=== PATIENT | male | born 1945 | race American Indian/Alaskan Native ===

== ENCOUNTER 2018-06-26 14:09 | Emergency (ER) | payer BC ==
[2018-06-26 14:16] VITALS: BMI 26.7
[2018-06-26 14:19] VITALS: TEMP 98.5
[2018-06-26] MEDS ORDERED: Fluorescein 1 mg Ophthalmic Strip ONE (14:40)
--- NOTE | 2018-06-26 14:40 | C.PDOC ---
History Of Present Illness 72 year old male comes in to ED complaining of redness and stinging to his right eye. 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 States he feels like something got into his lid. Patient reports he washed his eye with eye wash but still feels some foreign body underneath the lid of right eye. Patient also complains of decreased vision. Otherwise he denies headache, neck pain, or other complaints. Time Seen by Provider: 06/26/18 14:28 Chief Complaint (Nursing): Eye Problem History Per: Patient History/Exam Limitations: no limitations Onset/Duration Of Symptoms: Days Current Symptoms Are (Timing): Still Present Past Medical History Reviewed: Historical Data, Nursing Documentation, Vital Signs Vital Signs: Last Vital Signs Temp 98.5 F 06/26/18 14:15 Pulse 79 06/26/18 14:15 Resp 18 06/26/18 14:15 BP 157/96 H 06/26/18 14:15 Pulse Ox 100 06/26/18 14:15 Family History: States: No Known Family Hx - Social History Hx Alcohol Use: No Hx Substance Use: No - Immunization History Hx Tetanus Toxoid Vaccination: No Hx Influenza Vaccination: No Hx Pneumococcal Vaccination: No Review Of Systems Except As Marked, All Systems Reviewed And Found Negative. Constitutional: Negative for: Fever, Chills Eyes: Positive for: Vision Change (decreased), Redness (and stinging to right eye) ENT: Negative for: Nose Congestion Respiratory: Negative for: Cough, Shortness of Breath Gastrointestinal: Negative for: Nausea, Vomiting Musculoskeletal: Negative for: Neck Pain Neurological: Negative for: Headache, Dizziness Physical Exam - Physical Exam Appears: Non-toxic Skin: Warm, Dry Head: Atraumatic, Normacephalic Eye(s): right: Other (fluorescein strip exam showed large central abrasion over the cornea, amorphous but circular in nature; positive redness and tearing) Oral Mucosa: Moist Neck: Supple Cardiovascular: Rhythm Regular, No Murmur Respiratory: Normal Breath Sounds, No Rales, No Rhonchi, No Wheezing Gastrointestinal/Abdominal: Soft, No Tenderness Extremity: Bilateral: Atraumatic, Normal Color And Temperature, Normal ROM Neurological/Psych: Oriented x3, Normal Speech ED Course And Treatment O2 Sat by Pulse Oximetry: 100 (RA) Pulse Ox Interpretation: Normal Medical Decision Making Medical Decision Making: Bacitracin applied to affected area. Patient felt better after antibiotic application. Advised patient to follow up in ophthalmology tomorrow. Disposition Counseled Patient/Family Regarding: Diagnosis, Need For Followup, Rx Given - Disposition Referrals: Hussain Bianchi [Staff Provider] - Disposition: HOME/ ROUTINE Disposition Time: 14:46 Condition: STABLE Prescriptions: Petrolatum,White [Aquaphor] 1 applic TP TID #1 tube Instructions: Corneal Abrasion (DC) Forms: [facility] (U[place]andan), General Discharge Instructions - POA Present On Arrival: None - Clinical Impression Clinical Impression: Corneal abrasion, Atopic eczema - Scribe Statement The provider has reviewed the documentation as recorded by the Beibjb Nettles Provider Attestation: All medical record entries made by the Beibjb were at my direction and personally dictated by me. I have reviewed the chart and agree that the record accurately reflects my personal performance of the history, physical exam, medical decision making, and the department course for this patient. I have also personally directed, reviewed, and agree with the discharge instructions and disposition.
[2018-06-26] MEDS ORDERED: Bacitracin Opht OINT 3.5GM OD STA (14:45)
[2018-06-26] MEDS ORDERED: Fluorescein 1 mg Ophthalmic Strip OD ONE (14:46)
[2018-06-26 15:02] VITALS: BP 150/90; PULSE 64; RESP 20
[2018-06-26 16:26] VITALS: O2SAT 100
== END 2018-06-26 15:02 | disposition home or self-care (01) ==
LOC: C.ER 14:09
DX: S05.01XA Injury of conjunctiva and corneal abrasion without foreign body, right eye, initial encounter (principal); X58.XXXA Exposure to other specified factors, initial encounter; L30.9 Dermatitis, unspecified